=== PATIENT | male | born 1990 | race African-American/Black ===

== ENCOUNTER 2020-09-09 16:13 | Emergency (ER) | payer OTHER ==
[~2020-09-09] VITALS: Ht 172.7 cm; Wt 77.1 kg
[2020-09-09 16:37] VITALS: BP 128/69; TEMP 97.9
[2020-09-09 17:17] LABS: PLATELET COUNT 346 K/uL (142-355)
== END 2020-09-09 18:41 | disposition home or self-care (01) ==
LOC: ED 16:27
PROVIDERS: Family Medicine
DX: L97.529 Non-pressure chronic ulcer of other part of left foot with unspecified severity (principal); M79.671 Pain in right foot
CPT/HCPCS: 80053; 81000; 85027; 99283